=== PATIENT | male | born 1960 | race Caucasian/White ===

== ENCOUNTER 2017-04-06 20:05 | Emergency (ER) | payer BC ==
[2017-04-06 20:17] VITALS: BP 147/86
--- NOTE | 2017-04-06 20:28 | ED ---
Laceration/Wound HPI - HPI Summary HPI Summary: 57 year old female presents left forearm laceration secondary to a knife. - History of Current Complaint Stated Complaint: LEFT FOREARM WOUND Time Seen by Provider: 04/06/17 20:28 Hx Obtained From: Patient Onset/Duration: Sudden Onset Onset Severity: Moderate Current Severity: Moderate Pain Scale Used: 0-10 Numeric - 5 - Allergy/Home Medications Allergies/Adverse Reactions: Allergies Allergy/AdvReac Type Severity Reaction Status Date / Time No Known Allergies Allergy Verified 04/06/17 20:13 Home Medications: Home Medications Cholecalciferol [Vitamin D] 1,000 unit PO DAILY 04/06/17 [History Confirmed 09/21] Glucosamine Sulfate [Glucosamine] 1,000 mg PO DAILY 04/06/17 [History Confirmed 04/06/17] PMH/Surg Hx/FS Hx/Imm Hx Endocrine/Hematology History: Reports: Hx Thyroid Disease - hypothyroid Cardiovascular History: Reports: Hx Hypertension - Surgical History Surgery Procedure, Year, and Place: R knee replacement, hernia, carpal tunnel, elbow surgery, removal of some lymph nodes in stomach Infectious Disease History: Yes Infectious Disease History: Reports: History Other Infectious Disease - Q-fever treated up until this past June Denies: Traveled Outside the [place] in Last 30 Days - Social History Alcohol Use: Rare Substance Use Type: Reports: None Smoking Status (MU): Former Smoker Type: Cigarettes Amount Used/How Often: quit 1984 Length of Time of Smoking/Using Tobacco: smoked ~ 10 years Have You Smoked in the Last Year: No Review of Systems Constitutional: Negative Eyes: Negative ENT: Negative Cardiovascular: Negative Respiratory: Negative Gastrointestinal: Negative Musculoskeletal: Negative Positive: Other - left forearm laceration All Other Systems Reviewed And Are Negative: Yes Physical Exam Triage Information Reviewed: Yes Vital Signs On Initial Exam: Initial Vitals Temp Pulse Resp BP Pulse Ox 37.3 C 85 14 147/86 98 04/06/17 20:09 04/06/17 20:09 04/06/17 20:04/06/17 20:04/06/17 20:09 Vital Signs Reviewed: Yes Skin: Positive: Other - left forearm laceration Head/Face: Positive: Normal Head/Face Inspection Eyes: Positive: Normal ENT: Positive: Normal ENT inspection Neck: Positive: Supple Respiratory/Lung Sounds: Positive: Clear to Auscultation Cardiovascular: Positive: Normal Abdomen Description: Positive: Nontender Bowel Sounds: Positive: Present Musculoskeletal: Positive: Normal Neurological: Positive: Normal Psychiatric: Positive: Normal Procedures - Laceration/Wound Repair 1 Description: Linear Anesthesia: Local, 1.0% Length, Depth and Shape: < 2.5 cm Laceration/Wound Explored: clean Closure: Single Layer Suture Type: Prolene Number of Sutures: 1 Layer Closure?: No Sterile Dressing Applied?: Yes Diagnostics - Vital Signs Vital Signs Temp Pulse Resp BP Pulse Ox 04/06/17 20:09 37.3 C 85 14 147/86 98 - Laboratory Lab Statement: Any lab studies that have been ordered have been reviewed, and results considered in the medical decision making process. Laceration Repair Course/Dx - Clinical Impression Provider Diagnoses: Laceration of forearm, left Discharge - Discharge Plan Condition: Stable Disposition: HOME Prescriptions: Cephalexin CAP* [Keflex CAP*] 500 mg PO TID #21 cap Patient Education Materials: Laceration (ED) Referrals: Celena Arriaga MD [Primary Care Provider] -
[2017-04-06] MEDS ORDERED: Lidocaine 1% MPF* 2 ML VIAL INJ ONE (20:30)
[2017-04-06] MEDS ORDERED: Tetan/Diph/Pertus SYR(Tdap)* 0.5 ML SYR(BOOSTRIX) use SYR IM ONE (21:07)
[2017-04-06] MEDS ORDERED: Cephalexin CAP* 500 MG PO ONE (21:08)
== END 2017-04-06 21:19 | disposition home or self-care (01) ==
LOC: UCCORT 20:05
DX: S51.812A Laceration without foreign body of left forearm, initial encounter (principal); E03.9 Hypothyroidism, unspecified; I10 Essential (primary) hypertension; Z96.651 Presence of right artificial knee joint; Z87.891 Personal history of nicotine dependence; W26.0XXA Contact with knife, initial encounter
CPT/HCPCS: 12001; 90471; 90715; 96372; 99212; A9270-GY; G0463

== ENCOUNTER 2018-05-16 09:50 | Inpatient (IN) | payer BC ==
[2018-05-16] MEDS ORDERED: NS 0.9% 1000 ML* 1,000 ML IV ONE (10:11)
[2018-05-16] MEDS ORDERED: NS 0.9% 1000 ML*IV.FLUID IV ONE (10:22)
--- NOTE | 2018-05-16 10:28 | ED ---
HPI Febrile Illness - HPI Summary HPI Summary: This pt is a 58 y/o male presenting to [facility] via EMS for fever, chills, generalized body aches today. Pt has hx of Q fever diagnosed in 2011. states pt has had recurrent episodes of Q fever that were not as bad, until his last episode. His last episode of Q fever was 2 years ago that resulted in 3 week hospital stay for affected internal organs. Pt normally goes to [facility]. Pt works at [email or web address] and today began to have fever, chills, body aches, muscle aches, abd pain, nausea, and lower back pain. He called EMS and was brought to the ED. Per triage note, pt rates her generalized body aches 6/10 in severity. Denies neck pain, headache, photophobia, blurred vision. PMHx includes Q fever, hypothyroid, HTN, ADHD. Pt is on metropolol. - History of Current Complaint Chief Complaint: EDFever Time Seen by Provider: 05/16/18 10:08 Hx Obtained From: Patient, Family/Talent Acquisition Project Manager - Onset/Duration: Started Hours Ago, Still Present Timing: Lasting Hours Current Severity: Moderate Pain Intensity: 6 Pain Scale Used: 0-10 Numeric Aggravating Factors: Nothing Alleviating Factors: Nothing Associated Signs and Symptoms: Chills, Myalgia, Nausea, Other: - POS: Abd pain, lower back pain - Allergy/Home Medications Allergies/Adverse Reactions: Allergies Allergy/AdvReac Type Severity Reaction Status Date / Time No Known Allergies Allergy Verified 04/06/17 20:13 Home Medications: Home Medications Albuterol HFA INHALER* [Ventolin HFA Inhaler*] 1 puff INH QID PRN 05/16/18 [ History Confirmed 05/16/18] Aspirin EC TAB* [Ecotrin EC Low Dose 81 MG*] 81 mg PO DAILY 05/16/18 [History Confirmed 05/16/18] Cholecalciferol TAB* [Vitamin D TAB*] 2,000 units PO DAILY 05/16/18 [History Confirmed 05/16/18] Cyclobenzaprine TAB* [Flexeril 10 MG TAB*] 10 mg PO BEDTIME PRN 05/16/18 [ History Confirmed 05/16/18] DOXYcycline CAP(*) [DOXYcycline 100MG CAP(*)] 100 mg PO BID 05/16/18 [History Confirmed 05/16/18] Diclofenac 1% GEL (NF) [Voltaren 1% GEL (NF)] 1 applic TOPICAL BID PRN 05/16/18 [History Confirmed 05/16/18] Glucosamine CAP (NF) 1,500 mg PO DAILY 05/16/18 [History Confirmed 05/16/18] Ibuprofen TAB* [Motrin TAB* 800 MG] 800 mg PO Q6H PRN 05/16/18 [History Confirmed 05/16/18] Levothyroxine TAB* [Synthroid TAB*] 175 mcg PO QAM 05/16/18 [History Confirmed 05/16/18] Methylphenidate TAB* [Ritalin TAB*] 20 mg PO BID 05/16/18 [History Confirmed 07/22] Metoprolol Tartrate TAB* [Lopressor TAB*] 25 mg PO BID 05/16/18 [History Confirmed 05/16/18] PMH/Surg Hx/FS Hx/Imm Hx Endocrine/Hematology History: Reports: Hx Thyroid Disease - hypothyroid Cardiovascular History: Reports: Hx Coronary Artery Disease, Hx Hypercholesterolemia, Hx Hypertension Psychiatric History: Reports: Hx Attention Deficit Hyperactivity Disorder - Surgical History Surgery Procedure, Year, and Place: R knee replacement, hernia, carpal tunnel, elbow surgery, removal of some lymph nodes in stomach Infectious Disease History: No Infectious Disease History: Reports: History Other Infectious Disease - Q-fever treated up until this past June Denies: Traveled Outside the [place] in Last 30 Days - Family History Known Family History: Positive: Hypertension Family History: cancer - Social History Alcohol Use: Weekly Alcohol Amount: 1x weekly Substance Use Type: Reports: None Smoking Status (MU): Former Smoker Type: Cigarettes Amount Used/How Often: quit 1984 Length of Time of Smoking/Using Tobacco: smoked ~ 10 years Have You Smoked in the Last Year: No Review of Systems Positive: Fever, Chills Negative: Photophobia, Blurred Vision Positive: Abdominal Pain, Nausea Musculoskeletal: Other - POS: lower back pain, body aches, muscle aches Positive: Myalgia. Negative: Other - neck pain Negative: Headache All Other Systems Reviewed And Are Negative: Yes Physical Exam - Summary Physical Exam Summary: VITAL SIGNS: Reviewed. GENERAL: Patient is a well-developed and nourished male who is febrile. Patient is not in any acute respiratory distress. HEAD AND FACE: No signs of trauma. No ecchymosis, hematomas or skull depressions. No sinus tenderness. EYES: PERRLA, EOMI x 2, No injected conjunctiva, no nystagmus. EARS: Hearing grossly intact. Ear canals and tympanic membranes are within normal limits. MOUTH: Oropharynx within normal limits. NECK: Supple, trachea is midline, no adenopathy, no JVD, no carotid bruit, no c- spine tenderness, neck with full ROM. No meningeal signs. CHEST: Symmetric, no tenderness at palpation LUNGS: Clear to auscultation bilaterally. No wheezing or crackles. CVS: Tachycardic rate and regular rhythm, S1 and S2 present, no murmurs or gallops appreciated. ABDOMEN: Soft, non-tender. Abdomen is distended. No rebound, no guarding, and no masses palpated. Bowel sounds are normal. MSK: FROM in all major joints, no edema, no cyanosis or clubbing. Diffuse muscle tenderness. NEURO: Alert and oriented x 3. No acute neurological deficits. Speech is normal and follows commands. SKIN: Dry and warm. Febrile. Triage Information Reviewed: Yes Vital Signs On Initial Exam: Initial Vitals Temp Pulse Resp BP Pulse Ox 98.8 F 104 26 120/68 100 05/16/18 09:53 05/16/18 09:53 05/16/18 09:53 05/16/18 09:53 05/16/18 09:53 Vital Signs Reviewed: Yes Diagnostics - Vital Signs Vital Signs Temp Pulse Resp BP Pulse Ox 05/16/18 09:53 98.8 F 104 26 120/68 100 - Laboratory Result Diagrams: 05/17/18 06:51 05/17/18 06:51 Lab Statement: Any lab studies that have been ordered have been reviewed, and results considered in the medical decision making process. - Radiology chest XR Xray Interpretation: No Acute Changes - IMPRESSION: No active cardiopulmonary disease. Dr. Adamson has reviewed this report. Radiology Interpretation Completed By: Radiologist - EKG 10:24 Cardiac Rate: Tachycardia - at 100 bpm EKG Rhythm: Sinus Tachycardia EKG Interpretation: No ST elevations. Course/Dx - Course Assessment/Plan: This pt is a 58 y/o male presenting to [facility] via EMS for fever , chills, generalized body aches today. Pt has hx of Q fever diagnosed in 2011. states pt has had recurrent episodes of Q fever that were not as bad, until his last episode. His last episode of Q fever was 2 years ago that resulted in 3 week hospital stay for affected internal organs. Pt normally goes to [facility]. Pt works at [employer] and today began to have fever, chills, body aches, muscle aches, abd pain, nausea, and lower back pain. He called EMS and was brought to the ED. Per triage note, pt rates her generalized body aches 6/10 in severity. Denies neck pain, headache, photophobia, blurred vision. PMHx includes Q fever, hypothyroid, HTN, ADHD. Pt is on metoprolol. Blood work without any significant abnormality except for glucose of 117, lactic acid is 3.3 and CRP is 15.54. Fibrinogen is 388 and INR is 0.96. Initially the patient was placed on a monitor car operator, IV access was obtained. The patient is febrile and tachycardic therefore I used the sepsis protocol. The patient was given IV fluids 30 cc's per KG, and he was started on Levaquin and doxycycline since the patient has a history of Q fever. I discussed the case, physical exam and findings with Dr. Mercedes from infectious disease, and he agrees with current management. I discussed my physical exam, findings and test results with Dr. Sevilla from the hospitalist services, and he agrees to admit patient to his services. Patient is hemodynamically stable, alert and oriented x 3. - Diagnoses Provider Diagnoses: Fever, Body aches - Provider Notifications Discussed Care Of Patient With: Renato Mercedes MD Time Discussed With Above Provider: 11:03 Instructed by Provider To: Other - I discussed case with Dr. Mercedes, infectious disease, who agrees with current management. [12:40] I discussed with Dr. Sevilla, hospitalist, who accepted the pt for admission. Discharge - Sign-Out/Discharge Documenting (check all that apply): Patient Departure - Admit to [facility] All imaging exams completed and their final reports reviewed: Yes - Discharge Plan Condition: Stable Disposition: ADMITTED TO [facility] - Billing Disposition and Condition Condition: STABLE Disposition: Admitted to [facility] - Attestation Statements Document Initiated by Scribe: Yes Documenting Scribe: Judit Nazario Provider For Whom Scribe is Documenting (Include Credential): Ahmet Adamson MD Scribe Attestation: I, Judit Nazario, scribed for Ahmet Adamson MD on 05/17/18 at 0838. Scribe Documentation Reviewed: Yes Provider Attestation: The documentation as recorded by the scribeJudit accurately reflects the service I personally performed and the decisions made by me, Ahmet Adamson MD
[2018-05-16] MEDS ORDERED: Acetaminophen TAB* 325 MG PO ONE (10:34)
[2018-05-16] MEDS ORDERED: Ondansetron INJ* 2 MG/ML VIAL IV ONE (10:35)
[2018-05-16] MEDS ORDERED: Morphine VIAL* 10 MG/ML 1 ML VIAL IV ONE (10:35)
[2018-05-16] MEDS ORDERED: DOXYcycline IV* 100 MG in NS 0.9% 250 ML* 250 ML IVPB ONE (10:47)
[2018-05-16] MEDS ORDERED: Levofloxacin 750 MG IVPREMIX(* 750 MG/150 ML BAG IVPB ONE (10:47)
[2018-05-16 11:10] LABS: ABS Basophils 0 10^3/ul (0-0.2); ABS Eosinophils 0 10^3/ul (0-0.6); ABS Lymphocytes 0.1 10^3/ul (1.0-4.8); ABS Monocytes 0.1 10^3/ul (0-0.8); ABS Neutrophils 3.9 10^3/ul (1.5-7.7); ABS Nucleated RBC 0 10^3/ul; Eosinophil % 0.2 % (0-6); Hematocrit 46 % (42-52); Hemoglobin 15.8 g/dl (14.0-18.0); Lymphocyte % 2.5 % (25-47); Mean Corpuscular HGB Conc 34 g/dl (31-36); Mean Corpuscular Hemoglobin 30 pg (27-31); Mean Corpuscular Volume 89 fL (80-94); Mean Platelet Volume 8.2 um3 (7.4-10.4); Nucleated Red Blood Cells % 0.1; Platelet Count 170 10^3/ul (150-450); Red Blood Count 5.22 10^6/ul (4.00-5.40); Red Cell Distribution Width 13 % (10.5-15); White Blood Count 4.1 10^3/ul (3.5-10.8)
[2018-05-16 11:15] LABS: INR 0.96 (0.77-1.02)
[2018-05-16 11:20] LABS: EGFR Non-African American 73.1 (>60)
--- NOTE | 2018-05-16 11:57 | RAD ---
HISTORY: Fever COMPARISONS: None VIEWS: 2: Frontal and lateral views of the chest. FINDINGS: CARDIOMEDIASTINAL SILHOUETTE: The cardiomediastinal silhouette is normal. GUNNER: The gunner are normal. PLEURA: The costophrenic angles are sharp. No pleural abnormalities are noted. LUNG PARENCHYMA: The lungs are clear. ABDOMEN: The upper abdomen is clear. There is no subphrenic gas. BONES AND SOFT TISSUES: No bone or soft tissue abnormalities are noted. OTHER: None. IMPRESSION: NO ACTIVE CARDIOPULMONARY DISEASE.
[2018-05-16] MEDS ORDERED: NS 0.9% 250 ML* 250 ML ONE (12:53)
[2018-05-16 12:56] LABS: Urine Appearance Clear; Urine Blood Negative (Negative); Urine Color Amber; Urine Ketones Negative (Negative); Urine Protein Negative (Negative); Urine Specific Gravity 1.016 (1.010-1.030); Urine Urobilinogen Negative (Negative)
[2018-05-16] MEDS ORDERED: Cyclobenzaprine TAB* 10 MG PO PRN (14:27)
[2018-05-16] MEDS ORDERED: Ibuprofen TAB* 800 MG PO PRN (14:27)
[2018-05-16] MEDS ORDERED: Acetaminophen TAB* 325 MG PO PRN (14:29)
[2018-05-16] MEDS ORDERED: Ondansetron INJ* 2 MG/ML VIAL IV PRN (14:29)
[2018-05-16] MEDS ORDERED: Albuterol 2.5 MG/3 ML NEB.SOL* (0.083%) INH PRN (14:52)
[2018-05-16] MEDS: cefTRIAXone(*) 1 GM in NS 0.9% 50 ML* 50 ML IVPB SCH (16:32)
--- NOTE | 2018-05-16 17:00 | HP ---
AMENDED REPORT NOW INCLUDES COSIGNER DESIGNATION CC: Dr. Arriaga * ADMISSION HISTORY AND PHYSICAL: DATE OF ADMISSION: 05/16/18 PRIMARY CARE PROVIDER: Dr. Arriaga in [facility]. MY ATTENDING WHILE IN THE HOSPITAL: Dr. Anthony Sevilla* (dictated by HOMAR Huerta). CHIEF COMPLAINT: Chills, body pain, flu-like syndrome. HISTORY OF PRESENT ILLNESS: Mr. Bañuelos is a 58-year-old male with a past medical history significant for acute fever diagnosed in 2011 with numerous recurrences since then requiring hospitalization and antibiotics, as well as obstructive sleep apnea, hypertension and multiple MIs, who presented to the hospital because this morning he woke up in his normal state of health, but after he went to work, he developed sudden onset chills, body pain, cough, shortness of breath, nausea, which is consistent with his previous recurrences of his acute fever requiring hospitalization. The patient sees an infectious disease specialist in the ID, but does not know his name. The patient is usually treated with doxycycline he states. The patient has not had any recurrences of acute fever this year, but has had 1 approximately monthly, all through 2017. It had been on and off since 2011. The patient states that his most recent was his most severe where he had end organ damage with his liver and gallbladder, but eventually he did not have a cholecystectomy at that time. The patient states that he has asked repeatedly if anybody knows where he may be harboring bacterium and it is unknown. The patient has no known valvular disease. The patient has a knee replacement from 2004, but has no joint pain. The patient has swelling around his right eye with conjunctivitis, which has occurred previously with his recurrences. The patient had no other recent illnesses. No sick contacts. The patient denies any pain with urination, increased frequency, or other urinary symptoms. The patient denies any cough, shortness of breath, or wheezing. The patient has inhaler, he rarely ever uses. The patient has had swelling in his lower extremities, but no increased dyspnea on exertion and no orthopnea or PND. Due to the concern for recurrence of acute fever, we were asked to evaluate the patient for admission. PAST MEDICAL HISTORY: Obstructive sleep apnea; hypertension; coronary artery disease with VT x3, no stents; kidney lesion, under surveillance; hypothyroidism ; Raynaud's disease; hyperlipidemia. PAST SURGICAL HISTORY: Knee replacement in 2004, abdominal lymph node dissection in 2012 related to acute fever, hernia repair in 2012, heart catheterization x3, vasectomy. MEDICATIONS: 1. Synthroid 200 mcg p.o. daily. 2. Simvastatin 20 mg p.o. daily. 3. Albuterol inhaler 1 puff q.4 hours as needed. 4. Cyclobenzaprine 10 mg p.o. at bedtime. 5. Ibuprofen 800 mg p.o. q.8 hours as needed for pain. 6. Voltaren gel 1% one application topical b.i.d. as needed. 7. Metoprolol tartrate 25 mg p.o. b.i.d. ALLERGIES: No known drug allergies. FAMILY HISTORY: The patient's mother of complications of hepatitis C. The patient's father is alive, but suffers from Alzheimer's disease. The patient has 2 sisters, one of whom is healthy, one of whom has breast cancer, hypothyroidism and hypertension. SOCIAL HISTORY: The patient quit tobacco in 1982. The patient drinks approximately 1 alcoholic beverage a week. The patient denies illicit drug use. The patient works in [employer]. He is and has 3 children, one of whom has a congenital heart disease requiring a pacemaker. The patient's surrogate decision maker will be his , Mandy Bañuelos. REVIEW OF SYSTEMS: A 14-point review of systems was reviewed and is negative except as above in the HPI. PHYSICAL EXAMINATION GENERAL: The patient is a 58-year-old male, who appears stated age and sitting comfortably in bed, in no acute distress. VITAL SIGNS: On presentation to the emergency department, temperature 102.4 rectally, pulse rate 104, respiratory rate 26, oxygen saturation 100% on room air, blood pressure 120/68. Repeat vital signs at the time of evaluation: Heart rate 82, respiratory rate 33, oxygen saturation of 97% on room air, blood pressure 107/69, temperature 99.1. HEENT: Head normocephalic, atraumatic. Conjunctival injection with circumferential ciliary flush, swelling of the lower eyelid in the left eye. No pharyngeal erythema, discharge, or exudate. NECK: Supple, nontender. No lymphadenopathy. No carotid bruits auscultated. RESPIRATORY: Clear to auscultation bilaterally. No wheezes, rales, or rhonchi. Good air exchange bilaterally. CARDIAC: Regular rate and rhythm. No clicks, murmurs, gallops, or rubs. Pulses are 2+ in the bilateral dorsalis pedis, posterior tibial, and radial areas. Trace bilateral lower extremity edema noted. No bilateral calf tenderness noted. ABDOMEN: Soft, nontender, nondistended. Bowel sounds present and normoactive in all 4 quadrants. No hepatosplenomegaly. No abdominal bruits auscultated. No hepatojugular reflux. GENITOURINARY: No suprapubic or CVA tenderness. NEURO: Cranial nerves II through XII intact. No focal deficits. Alert and oriented x3. PSYCHIATRIC: Pleasant and cooperative. SKIN: Flushed. No other rash. Scars consistent with above mentioned surgeries. DIAGNOSTIC STUDIES/LAB DATA: White blood cell count 4.1, hemoglobin 15.8, platelet count 170, ESR 14. INR 0.96, APTT 25.8, fibrinogen 388.8. Sodium 136 , potassium 3.6, chloride 103, carbon dioxide 25, anion gap 8, BUN 17, creatinine 1.04, glucose 117, lactic acid 3.3, calcium 8.8. Bilirubin 0.6, AST 26, ALT 20, alkaline phosphatase 96. Creatine kinase 107, troponin I of 0.00, CRP 15.54, BNP 24. Protein 7.2, albumin 3.9, globulin 3.3. Urine is benign. Influenza A and B are negative. Studies: EKG shows normal sinus rhythm. No hypertrophy or enlargement. Rate of 100, QTc of 400. No ST segment abnormalities. Possible left atrial enlargement. Q waves present in the inferior leads. Normal axis. No other abnormalities. Chest x-ray read as no acute cardiopulmonary disease. ASSESSMENT AND PLAN/IMPRESSION: Mr. Bañuelos is a 58-year-old male with a past medical history significant for recurrent acute fever, multiple myocardial infarctions, obstructive sleep apnea and hypertension, who presents to the emergency department with a 1-day history of sudden onset fevers, chills and body pains consistent with previous recurrence of acute fever. The patient has no other obvious source of infection. The patient met sepsis criteria. The patient has been bolused, started on IV antibiotics, and will be admitted to the hospital for close observation, IV antibiotics and infectious disease consult. 1. Sepsis, likely acute fever recurrence. The patient met sepsis criteria upon admission to the hospital with elevated lactic acid, fever, tachycardia. The patient has not had significant hypotension. The patient's tachycardia has improved with fluids. The patient has a repeat lactic acid pending. The patient is on appropriate IV antibiotics for his condition. The patient has a negative chest x-ray, negative urinalysis, no suspicious rashes, and a known history of acute fever. The patient has blood cultures pending. The patient was discussed with Dr. Renato Mercedes, who will see the patient in consultation. He has been started on doxycycline and ceftriaxone for broad- spectrum antibiotic coverage until other infections are excluded. The patient will have a transthoracic echocardiogram to assess for valvular disease or endocarditis. Records will be attempted to be obtained from the patient's previous hospitalizations at the ID as well as his infectious disease consultation. The patient's prosthetic knee does not show signs of inflammation and it is likely not the source of his continued infection, which is currently unknown. 2. Hypertension. Continue the patient's metoprolol. The patient is currently normotensive. 3. Coronary artery disease. The patient has no chest pain. Continue statin, aspirin, and metoprolol. 4. Reactive airway disease. Continue albuterol inhaler as needed. 5. Attention deficit disorder. Continue the patient's methylphenidate. 6. DVT prophylaxis: The patient is a high risk. The patient will have heparin subcu. 7. FEN: The patient will have a heart-healthy diet without caffeine. He already has a fluid bolus and will have maintenance fluids at 75 mL an hour. 8. Code status: The patient would like to be a full code. The patient's surrogate decision maker will be his as above. 9. Disposition: The patient is admitted inpatient. TIME SPENT: Approximately 60 minutes was spent on admission of this patient, 30 of which was spent [id number] with the patient obtaining history and physical and discussing treatment plan. The plan was discussed with my attending , Dr. Anthony Sevilla, and he is in agreement. HOMAR HUERTA [id number]/CPS #: [id number]
--- NOTE | 2018-05-16 18:24 | ECHO ---
Patient: DAYA SHEARER [facility] Rec#: [id number] : 1960 Date: 05/16/2018 Age: 58y Height: 170 cm / 66.9 in Weight: 118 kg / 260.1 lbs Sex: M BSA: 2.3 Room#: [facility] Admit Date#: 05/16/2018 Type: Inpatient Referring: Shorty Galvan Reading: Tashi Mullen MD Financial Analyst Intern: Letty Lee RN RDCS CC: Celena Arriaga MD Transthoracic Echocardiogram Indication: Fever, possible Q fever endocarditis BP: 107/69 HR: 85 Rhythm: NSR Findings History: HTN, HLD, CAD, thyroid disease, former smoker, obesity, Q fever diagnosed in 2011 Technical Comments: The study is technically limited due to patient body habitus. The study is technically limited due to the patient's smoking history. Left Ventricle: The left ventricular chamber size is normal. Mild concentric left ventricular hypertrophy is observed. Global left ventricular wall motion and contractility are within normal limits. There is normal left ventricular systolic function. The estimated ejection fraction is 55-60%. There is no consistent Doppler evidence of clinically significant diastolic dysfunction. Left Atrium: The left atrium is mildly dilated. Right Ventricle: The right ventricular cavity size is normal. The right ventricular global systolic function is normal. Right Atrium: The right atrium is mildly dilated. Aortic Valve: The aortic valve structure is not well visualized. There is no evidence of aortic regurgitation. There is no evidence of aortic stenosis. Mitral Valve: The mitral valve leaflets are mildly thickened. There is a trace of mitral regurgitation. Tricuspid Valve: The tricuspid valve leaflets are normal. There is trace to mild tricuspid regurgitation. There is evidence of mild pulmonary hypertension. Pulmonic Valve: The pulmonic valve structure is not well visualized. There is no evidence of pulmonic regurgitation. There is no pulmonic stenosis. Pericardium: There is no significant pericardial effusion. A pericardial fat pad is visualized. Aorta: There is no dilatation of the ascending aorta. There is no dilatation of the aortic arch. There is no dilation of the aortic root. Pulmonary Artery: The main pulmonary artery is not well visualized. Venous: The inferior vena cava appears normal in size. There is a greater than 50% respiratory change in the inferior vena cava dimension. Conclusions The study is technically limited due to patient body habitus. There is normal left ventricular systolic function. The estimated ejection fraction is 55-60%. Global left ventricular wall motion and contractility are within normal limits. The left ventricular chamber size is normal. Mild concentric left ventricular hypertrophy is observed. The left atrium is mildly dilated. The right atrium is mildly dilated. Functionally benign heart valves. There is evidence of mild pulmonary hypertension. No obvious cardiac vegetations on this transthoracic echocardiogram. If clinical suspicion remains, consider transesophageal echocardiogram. There is no prior echocardiogram available to compare with at this time. Measurements Name Value Normal Range RVDdMajor (2D) 3.1 cm (2.2 - 4.4) RAd ISD 4CH 5.2 cm (3.4 - 4.9) RA (A4C)W 3.7 cm (2.9 - 4.6) IVSd (2D) 1.2 cm (0.6 - 1) LVPWd (2D) 1.1 cm (0.6 - 1) LVIDd (2D) 3.9 cm (3.6 - 5.4) Aortic Annulus 1.8 cm (1.4 - 2.6) Ao root diameter (2D) 3.1 cm (2.1 - 3.5) Ascending Ao 3 cm (2.1 - 3.4) Aortic arch 3 cm (1.8 - 3.4) LA dimension (AP) 2D 3.5 cm (2.3 - 3.8) LAd ISD 4CH 5.5 cm (2.9 - 5.3) LA ISD 4CH W 3.2 cm (2.5 - 4.5) Name Value Normal Range LA ESV BP (A/L) index 16.3 ml/m2 - Name Value Normal Range MV E-wave Vmax 0.88 m/sec - MV deceleration time 208 msec - MV A-wave Vmax 0.95 m/sec - MV E:A ratio 0.9 ratio - LV septal e' Vmax 0.09 m/sec - LV lateral e' Vmax 0.12 m/sec - LV E:e' septal ratio 9.8 ratio - LV E:e' lateral ratio 7.3 ratio - Name Value Normal Range AV Vmax 1.7 m/sec - AV VTI 37 cm - AV peak gradient 11 mmHg - AV mean gradient 7 mmHg - LVOT Vmax 1.5 m/sec - LVOT VTI 31.3 cm - LVOT peak gradient 9 mmHg - LVOT mean gradient 5 mmHg - MERT Vmax 0.83 m/sec - Name Value Normal Range TR Vmax 3 m/sec - TR peak gradient 36 mmHg - RAP 3 mmHg - RVSP 39 mmHg - IVC diameter 2 cm - Name Value Normal Range PV Vmax 0.74 m/sec -
[2018-05-16] MEDS: Metoprolol Tartrate TAB* 25 MG PO SCH (20:39)
[2018-05-16] MEDS: Methylphenidate TAB* 10 MG PO SCH (20:39)
[2018-05-16] MEDS: Heparin VIAL(*) 5000 UNITS/ML VIAL (FIVE THOUSAND) SUBCUT SCH (21:24)
[2018-05-17] MEDS: DOXYcycline IV* 100 MG in NS 0.9% 250 ML* 250 ML IVPB SCH ×2 (01:49→13:36)
[2018-05-17] MEDS: Heparin VIAL(*) 5000 UNITS/ML VIAL (FIVE THOUSAND) SUBCUT SCH ×3 (05:37→21:48)
[2018-05-17] MEDS: Levothyroxine TAB* 100 MCG TAB PO SCH (05:38)
[2018-05-17] MEDS ORDERED: Levothyroxine TAB* 175 MCG TAB PO SCH (06:00)
[2018-05-17 07:31] LABS: ABS Basophils 0 10^3/ul (0-0.2); ABS Eosinophils 0.2 10^3/ul (0-0.6); ABS Lymphocytes 0.8 10^3/ul (1.0-4.8); ABS Monocytes 0.7 10^3/ul (0-0.8); ABS Neutrophils 2.8 10^3/ul (1.5-7.7); ABS Nucleated RBC 0 10^3/ul; Eosinophil % 4.3 % (0-6); Hematocrit 42 % (42-52); Hemoglobin 14.1 g/dl (14.0-18.0); Lymphocyte % 16.6 % (25-47); Mean Corpuscular HGB Conc 34 g/dl (31-36); Mean Corpuscular Hemoglobin 30 pg (27-31); Mean Corpuscular Volume 89 fL (80-94); Mean Platelet Volume 8.7 um3 (7.4-10.4); Nucleated Red Blood Cells % 0.3; Platelet Count 158 10^3/ul (150-450); Red Blood Count 4.75 10^6/ul (4.00-5.40); Red Cell Distribution Width 14 % (10.5-15); White Blood Count 4.6 10^3/ul (3.5-10.8)
[2018-05-17 07:51] LABS: EGFR Non-African American 82.1 (>60)
[2018-05-17] MEDS: Cholecalciferol TAB* 1000 UNITS PO SCH (09:05)
[2018-05-17] MEDS: Atorvastatin* 10 MG TAB PO SCH (09:05)
[2018-05-17] MEDS: Methylphenidate TAB* 10 MG PO SCH ×2 (09:05→20:40)
[2018-05-17] MEDS: Metoprolol Tartrate TAB* 25 MG PO SCH ×2 (09:05→20:40)
[2018-05-17] MEDS: Aspirin EC TAB* 81 MG TAB.EC PO SCH (09:05)
--- NOTE | 2018-05-17 11:48 | PN ---
Subjective Date of Service: 05/17/18 Interval History: The patient states he had chills some time after starting work at 7 AM 05/16, felt better some time after arriving by ambulance at the ED. No c/o today. Objective Active Medications: Acetaminophen (Tylenol Tab*) 650 mg PO Q6H PRN PRN Reason: FEVER/PAIN Albuterol (Ventolin 2.5 Mg/3 Ml Neb.Clare*) 2.5 mg INH Q4H PRN PRN Reason: SOB/WHEEZING Aspirin (Aspirin Ec Tab*) 81 mg PO DAILY [facility] Last Admin: 05/17/18 09:05 Dose: 81 mg Atorvastatin Calcium (Lipitor*) 5 mg PO DAILY [facility] Last Admin: 05/17/18 09:05 Dose: 5 mg Cholecalciferol (Vitamin D Tab*) 2,000 units PO DAILY [facility] Last Admin: 05/17/18 09:05 Dose: 2,000 units Cyclobenzaprine HCl (Flexeril Tab*) 10 mg PO BEDTIME PRN PRN Reason: SPASMS - MUSCLE Heparin Sodium (Porcine) (Heparin Vial(*)) 5,000 units SUBCUT Q8HR [facility] Last Admin: 05/17/18 05:37 Dose: 5,000 units Doxycycline Hyclate 100 mg/ (Sodium Chloride) 250 mls @ 250 mls/hr IVPB Q12H [facility] Last Admin: 05/17/18 01:49 Dose: 250 mls/hr Ceftriaxone Sodium 1 gm/ (Sodium Chloride) 50 mls @ 200 mls/hr IVPB Q24H [facility] Last Admin: 05/16/18 16:32 Dose: 200 mls/hr Lactated Ringer's (Lactated Ringers 1000 Ml Bag*) 1,000 mls @ 75 mls/hr IV PER RATE [facility] Last Admin: 05/17/18 01:49 Dose: 75 mls/hr Ibuprofen (Motrin Tab*) 800 mg PO Q6H PRN PRN Reason: FEVER/PAIN Levothyroxine Sodium (Synthroid Tab*) 200 mcg PO DAILY@0600 [facility] Last Admin: 05/17/18 05:38 Dose: 200 mcg Methylphenidate HCl (Ritalin Tab*) 20 mg PO BID [facility] Last Admin: 05/17/18 09:05 Dose: 20 mg Metoprolol Tartrate (Lopressor Tab*) 25 mg PO BID [facility] Last Admin: 05/17/18 09:05 Dose: 25 mg Ondansetron HCl (Zofran Inj*) 4 mg IV Q6H PRN PRN Reason: NAUSEA Vital Signs - 8 hr 05/17/18 07:35 Temperature 98.1 F Pulse Rate 71 Respiratory 17 Rate Blood Pressure 120/75 (mmHg) O2 Sat by Pulse 99 Oximetry Oxygen Devices in Use Now: None Appearance: Alert, sitting on the edge of his bed. In good spirits. Looks comfortable. Eyes: No Scleral Icterus Neck: NL Appearance and Movements; NL JVP, No Thyroid Enlargement, Masses Respiratory: Symmetrical Chest Expansion and Respiratory Effort, Clear to Auscultation, Clear to Percussion Cardiovascular: NL Sounds; No Murmurs; No JVD, RRR, No Edema, - Extremities: No Edema, No Clubbing, Cyanosis, - Skin: No Rash or Ulcers, No Nodules or Sclerosis, - Neurological: Alert and Oriented x 3, NL Sensation Result Diagrams: 05/17/18 06:51 05/17/18 06:51 Microbiology and Other Data: Microbiology 05/16/18 10:54 Aerobic Blood Culture - Preliminary Blood Venous No Growth Day 1 Anaerobic Blood Culture - Preliminary No Growth Day 1 05/16/18 10:54 Aerobic Blood Culture - Preliminary Blood Venous No Growth Day 1 Anaerobic Blood Culture - Preliminary No Growth Day 1 05/16/18 10:54 Influenza Types A,B Antigen - Final Nasal Specimen received for Influenza A/B Molecular testing Assess/Plan/Problems-Billing Assessment: - Patient Problems (1) Fever Current Visit: Yes Status: Acute Code(s): R50.9 - FEVER, UNSPECIFIED SNOMED Code(s): 751619314 Comment: Hx recurrent Q fever treated at [facility]. Records have been requested. Continue doxy, ceftri. Discussed with Dr. Mercedes. DONOVAN planned for 05/19. (2) HTN (hypertension) Current Visit: Yes Status: Acute Code(s): I10 - ESSENTIAL (PRIMARY) HYPERTENSION SNOMED Code(s): 71361424 Comment: Continue metoprolol. (3) CAD (coronary artery disease) Current Visit: Yes Status: Acute Code(s): I25.10 - ATHSCL HEART DISEASE OF [place] CORONARY ARTERY W/O ANG PCTRS SNOMED Code(s): 85931162 Comment: Continue ASA, metoprolol, statin (4) ADD (attention deficit disorder) Current Visit: Yes Status: Acute Code(s): F98.8 - OTH BEHAV/EMOTN DISORD W ONSET USLY OCCUR IN CHLDHD AND ADOL SNOMED Code(s): 631688217 Comment: Copntinue methylphenidate. (5) Hypothyroid Current Visit: Yes Status: Acute Code(s): E03.9 - HYPOTHYROIDISM, UNSPECIFIED SNOMED Code(s): 72887708 Comment: Continue levothyroxine. Add on TSH.
[2018-05-17] MEDS: cefTRIAXone(*) 1 GM in NS 0.9% 50 ML* 50 ML IVPB SCH (15:45)
[2018-05-18] MEDS: DOXYcycline IV* 100 MG in NS 0.9% 250 ML* 250 ML IVPB SCH ×2 (00:50→13:30)
[2018-05-18] MEDS: Levothyroxine TAB* 100 MCG TAB PO SCH (05:42)
[2018-05-18] MEDS: Heparin VIAL(*) 5000 UNITS/ML VIAL (FIVE THOUSAND) SUBCUT SCH ×3 (05:43→20:38)
--- NOTE | 2018-05-18 09:04 | PN ---
Subjective Date of Service: 05/18/18 Interval History: No c/o, feels well. No bowel c/o. Good appetite. No chills or sweats. Objective Active Medications: Acetaminophen (Tylenol Tab*) 650 mg PO Q6H PRN PRN Reason: FEVER/PAIN Albuterol (Ventolin 2.5 Mg/3 Ml Neb.Clare*) 2.5 mg INH Q4H PRN PRN Reason: SOB/WHEEZING Aspirin (Aspirin Ec Tab*) 81 mg PO DAILY [facility] Last Admin: 05/17/18 09:05 Dose: 81 mg Atorvastatin Calcium (Lipitor*) 5 mg PO DAILY [facility] Last Admin: 05/17/18 09:05 Dose: 5 mg Cholecalciferol (Vitamin D Tab*) 2,000 units PO DAILY [facility] Last Admin: 05/17/18 09:05 Dose: 2,000 units Cyclobenzaprine HCl (Flexeril Tab*) 10 mg PO BEDTIME PRN PRN Reason: SPASMS - MUSCLE Heparin Sodium (Porcine) (Heparin Vial(*)) 5,000 units SUBCUT Q8HR [facility] Last Admin: 05/18/18 05:43 Dose: 5,000 units Doxycycline Hyclate 100 mg/ (Sodium Chloride) 250 mls @ 250 mls/hr IVPB Q12H [facility] Last Admin: 05/18/18 00:50 Dose: 250 mls/hr Ceftriaxone Sodium 1 gm/ (Sodium Chloride) 50 mls @ 200 mls/hr IVPB Q24H [facility] Last Admin: 05/17/18 15:45 Dose: 200 mls/hr Lactated Ringer's (Lactated Ringers 1000 Ml Bag*) 1,000 mls @ 75 mls/hr IV PER RATE [facility] Last Admin: 05/17/18 19:12 Dose: 75 mls/hr Ibuprofen (Motrin Tab*) 800 mg PO Q6H PRN PRN Reason: FEVER/PAIN Levothyroxine Sodium (Synthroid Tab*) 200 mcg PO DAILY@0600 [facility] Last Admin: 05/18/18 05:42 Dose: 200 mcg Methylphenidate HCl (Ritalin Tab*) 20 mg PO BID [facility] Last Admin: 05/17/18 20:40 Dose: 20 mg Metoprolol Tartrate (Lopressor Tab*) 25 mg PO BID [facility] Last Admin: 05/17/18 20:40 Dose: 25 mg Ondansetron HCl (Zofran Inj*) 4 mg IV Q6H PRN PRN Reason: NAUSEA Vital Signs - 8 hr 05/18/18 03:37 Temperature 98.0 F Pulse Rate 59 Respiratory 18 Rate Blood Pressure 124/76 (mmHg) O2 Sat by Pulse 97 Oximetry Oxygen Devices in Use Now: None Appearance: Alert, in a chair. In good spirits. Looks comrotable. Eyes: No Scleral Icterus Extremities: No Edema, No Clubbing, Cyanosis, - Skin: No Rash or Ulcers, No Nodules or Sclerosis, - Neurological: Alert and Oriented x 3, NL Sensation Result Diagrams: 05/17/18 06:51 05/17/18 06:51 Microbiology and Other Data: Microbiology 05/16/18 10:54 Aerobic Blood Culture - Preliminary Blood Venous No Growth Day 1 Anaerobic Blood Culture - Preliminary No Growth Day 1 05/16/18 10:54 Aerobic Blood Culture - Preliminary Blood Venous No Growth Day 1 Anaerobic Blood Culture - Preliminary No Growth Day 1 05/16/18 10:54 Influenza Types A,B Antigen - Final Nasal Specimen received for Influenza A/B Molecular testing Assess/Plan/Problems-Billing Assessment: - Patient Problems (1) Fever Current Visit: Yes Status: Acute Code(s): R50.9 - FEVER, UNSPECIFIED SNOMED Code(s): 580128862 Comment: Hx recurrent Q fever treated at [facility]. Records have been requested. Continue doxisai nunezi. Discussed with Dr. Mercedes. DONOVAN planned for 05/19. (2) HTN (hypertension) Current Visit: Yes Status: Acute Code(s): I10 - ESSENTIAL (PRIMARY) HYPERTENSION SNOMED Code(s): 41419754 Comment: Continue metoprolol. (3) CAD (coronary artery disease) Current Visit: Yes Status: Acute Code(s): I25.10 - ATHSCL HEART DISEASE OF [place] CORONARY ARTERY W/O ANG PCTRS SNOMED Code(s): 73237933 Comment: Continue ASA, metoprolol, statin (4) ADD (attention deficit disorder) Current Visit: Yes Status: Acute Code(s): F98.8 - OTH BEHAV/EMOTN DISORD W ONSET USLY OCCUR IN CHLDHD AND ADOL SNOMED Code(s): 885331984 Comment: Continue methylphenidate. (5) Hypothyroid Current Visit: Yes Status: Acute Code(s): E03.9 - HYPOTHYROIDISM, UNSPECIFIED SNOMED Code(s): 86077291 Comment: Continue levothyroxine. Add on TSH 0.53 on 05/17..
[2018-05-18] MEDS: Aspirin EC TAB* 81 MG TAB.EC PO SCH (09:42)
[2018-05-18] MEDS: Methylphenidate TAB* 10 MG PO SCH ×2 (09:42→20:38)
[2018-05-18] MEDS: Metoprolol Tartrate TAB* 25 MG PO SCH ×2 (09:43→20:38)
[2018-05-18] MEDS: Atorvastatin* 10 MG TAB PO SCH (09:43)
[2018-05-18] MEDS: Cholecalciferol TAB* 1000 UNITS PO SCH (09:43)
[2018-05-18] MEDS: cefTRIAXone(*) 1 GM in NS 0.9% 50 ML* 50 ML IVPB SCH (15:59)
[2018-05-19] MEDS: DOXYcycline IV* 100 MG in NS 0.9% 250 ML* 250 ML IVPB SCH (01:17)
[2018-05-19] MEDS: Heparin VIAL(*) 5000 UNITS/ML VIAL (FIVE THOUSAND) SUBCUT SCH (05:44)
[2018-05-19] MEDS: Levothyroxine TAB* 100 MCG TAB PO SCH (05:49)
[2018-05-19 07:20] LABS: ABS Basophils 0.1 10^3/ul (0-0.2); ABS Eosinophils 0.4 10^3/ul (0-0.6); ABS Lymphocytes 1.3 10^3/ul (1.0-4.8); ABS Monocytes 0.6 10^3/ul (0-0.8); ABS Neutrophils 5.6 10^3/ul (1.5-7.7); ABS Nucleated RBC 0 10^3/ul; Eosinophil % 5.4 % (0-6); Hematocrit 44 % (42-52); Hemoglobin 14.9 g/dl (14.0-18.0); Lymphocyte % 16.5 % (25-47); Mean Corpuscular HGB Conc 34 g/dl (31-36); Mean Corpuscular Hemoglobin 30 pg (27-31); Mean Corpuscular Volume 88 fL (80-94); Mean Platelet Volume 8.5 um3 (7.4-10.4); Nucleated Red Blood Cells % 0.2; Platelet Count 182 10^3/ul (150-450); Red Blood Count 4.97 10^6/ul (4.00-5.40); Red Cell Distribution Width 13 % (10.5-15); White Blood Count 8.1 10^3/ul (3.5-10.8)
[2018-05-19] MEDS: Aspirin EC TAB* 81 MG TAB.EC PO SCH (07:57)
[2018-05-19] MEDS: Atorvastatin* 10 MG TAB PO SCH (07:57)
[2018-05-19] MEDS: Methylphenidate TAB* 10 MG PO SCH (07:58)
[2018-05-19] MEDS: Cholecalciferol TAB* 1000 UNITS PO SCH (07:58)
[2018-05-19] MEDS: Metoprolol Tartrate TAB* 25 MG PO SCH (07:58)
--- NOTE | 2018-05-19 09:36 | PN ---
Progress Note - Progress Note Date of Service: 05/19/18 Note: Time spent on discharge 40 minutes, including exam of the patient, discussion with the pt, nurse, , CM, Dr. Mercedes, review of EMR and preparation of discharge documents.
[2018-05-19 11:34] VITALS: BP 127/73
--- NOTE | 2018-05-19 22:05 | DS ---
DISCHARGE SUMMARY: DATE OF ADMISSION: DATE OF DISCHARGE: 05/19/18 HISTORY OF PRESENT ILLNESS: This 58-year-old man presented with chills, myalgias, and malaise. He had went to work on the day of admission. He was well until shortly after he arrived there. He then developed chills as he [facility] and has had recurrences. He was advised to go to the hospital whenever he felt this kind of symptom complex which he did. He was evaluated here, he felt well shortly after treatments initiated on the first hospital day. He was treated with ceftriaxone and doxycycline. Q fever antibodies were sent off. Two sets of blood cultures were done and there was no growth on day 2 at the time of this dictation. He had a transthoracic echocardiogram. This showed normal ejection fraction. There were no significant valvular abnormalities. The patient will take 11 more days of doxycycline as an outpatient. Q fever antibodies were sent off and the results to an outside lab and the results are pending at this time. He was instructed to see an ID specialist at the [facility] within 1 week of discharge. DISCHARGE DIAGNOSES: 1. Febrile illness. 2. Coronary artery disease. 3. Hypothyroidism. 4. History of recurrent Q fever. 5. Attention deficit disorder. DISCHARGE MEDICATIONS: 1. Doxycycline 100 mg b.i.d. for 22 doses. 2. Simvastatin 10 mg daily. 3. Diclofenac 1% gel b.i.d. p.r.n. 4. Ibuprofen 800 mg every 6 hours p.r.n. 5. Glucosamine 1500 mg daily. 6. Cholecalciferol 2000 units daily. 7. Aspirin 81 mg daily. 8. Metoprolol tartrate 25 mg b.i.d. 9. Methylphenidate 20 mg b.i.d. 10. Levothyroxine 175 mcg daily. 11. Cyclobenzaprine 10 mg h.s. p.r.n. 12. Albuterol inhaler 1 puff 4 times a day p.r.n. DISCHARGE DISPOSITION: home DISCHARGE CONDITION: good [id number]/[facility] #: [id number] [facility]
== END 2018-05-19 12:45 | disposition home or self-care (01) | DRG 720 ==
LOC: ED 09:50 → MED 12:57
PROVIDERS: ADMIT Internal Medicine; ATTEND Internal Medicine
PROC: 5A09357 Assistance with Respiratory Ventilation, Less than 24 Consecutive Hours, Continuous Positive Airway Pressure (ICD-10-PCS; principal; 2018-05-16)
DX: A41.9 Sepsis, unspecified organism (principal); G47.33 Obstructive sleep apnea (adult) (pediatric); I25.2 Old myocardial infarction; I10 Essential (primary) hypertension; I25.10 Atherosclerotic heart disease of native coronary artery without angina pectoris; E78.5 Hyperlipidemia, unspecified; E03.9 Hypothyroidism, unspecified; F90.9 Attention-deficit hyperactivity disorder, unspecified type; J45.909 Unspecified asthma, uncomplicated; Z96.651 Presence of right artificial knee joint; Z79.82 Long term (current) use of aspirin; Z80.3 Family history of malignant neoplasm of breast; Z82.49 Family history of ischemic heart disease and other diseases of the circulatory system; Z82.0 Family history of epilepsy and other diseases of the nervous system; Z83.49 Family history of other endocrine, nutritional and metabolic diseases; Z87.891 Personal history of nicotine dependence; Z72.89 Other problems related to lifestyle
CPT/HCPCS: 36415; 71046; 80048; 80053; 81003; 82550; 83605; 83735; 83880; 84443; 84484; 85025; 85384; 85610; 85652; 85730; 86140; 86638; 87040; 93005; 93306; 94660; 99284; A9270-GY; J0696; J1644; J2270; J2405